=== PATIENT | female | born 1960 | race Caucasian/White ===

== ENCOUNTER 2017-04-05 08:32 | Outpatient (CLI) | payer MEDICAID ==
[~2017-04-05] VITALS: Ht 157.5 cm; Wt 75.5 kg
--- NOTE | ~2017-04-05 | OP ---
PATIENT NAME: TRINIDAD ZAMORA MEDICAL RECORD: [id number] :58 LOCATION:D.CAT ADMISSION DATE: SURGEON: SHARLENE ALLEN MD DATE OF OPERATION: 04/05/2017 PROCEDURES: 1. PTCA stent RCA. 2. Left heart catheterization. 3. Selective angiography. 4. Left ventriculogram. INDICATION: Angina and coronary artery disease. PROCEDURE IN DETAIL: After informed consent was obtained and after detailed explanation of risks, benefits as well as alternative therapies, the patient elected to proceed with angiogram and angioplasty. The left femoral area was prepped and draped in normal sterile fashion. The right femoral artery was cannulated via modified Seldinger technique with placement of 6-Welsh sheath. All catheters exchanged through this sheath. FINDINGS: Left ventriculogram was performed in the standard 30-degree RIVAS view, reveals good cardiac wall motion throughout all segments. Overall ejection fraction estimated 60%. SELECTIVE CORONARY ANGIOGRAPHY: 1. Left main showed no significant angiographic disease. 2. Left anterior descending has nnxw-qr-abhpechs irregularities, but no flow-limiting stenosis. 3. The left circumflex has previously placed stent that is widely patent with no restenosis. No disease elsewise throughout the left circumflex or its branches. 4. The right coronary has previously placed stent in the proximal aspect. This is widely patent; however, the distal right coronary has long area of 70% to 80% stenosis. PTCA STENT OF THE RIGHT CORONARY: The stent used 2.25 x 30 mm [place]. Result was 0% residual stenosis. OVERALL IMPRESSION: Successful percutaneous transluminal coronary angioplasty stent of the right coronary artery going from 80% initial stenosis to 0% residual. TRANSINT:[id number] Voice Confirmation ID: [id number] DOCUMENT ID: [id number] SHARLENE ALLEN MD CC: [id number] DICTATION DATE: 04/05/17 1226 JUKE BOX SERVICER: 04/05/17 210 [facility] CLI 04/05/17 [place] [address]
--- NOTE | ~2017-04-05 | HEMODYNAMI ---
PATIENT:TRINIDAD ZAMORA MEDICAL RECORD: [id number] : 58 LOCATION:DVIPIN ADMISSION DATE: 04/05/17 Generatedon:04/05/201712:30 Patient name: TRINIDAD ZAMORA Patient #: [id number] : 1960 Date of study: 04/05/2017 Page: Of Hemodynamic Procedure Report Patient Data Patient Demographics Procedure consent was obtained First Name: TRINIDAD Gender: Female Last Name: SERA : 1960 [facility] Initial: Vu Age: 56 year(s) Patient #: [id number] Race: SSN: [id number] Additional ID: [id number] Contact details Address: [address] [place] [address] State: [place] City: [place] Zip code: [address] Past Medical History History of disease Date Diagnosis Comments CAD Allergies Allergen Reaction Date Comments Reported Other allergy 06/01/2016 Biaxin, Keflex, Sulfa Sulfa drugs 06/03/2016 Other allergy 06/03/2016 biaxin, keflex Admission Admission Data Admission Date: 04/05/2017 Admission Time: 8:32 Height (in.): 62 BSA: 1.77 (m2) Height (cm.): 157.48 BMI: 30.36 (kg/m2) Weight (lbs.): 166 Weight (kg.): 75.3 Procedure Procedure Types Cath Procedure Diagnostic Procedure [facility] w/Coronaries PCI Procedure Coronary Stent Initial Miscellaneous Procedures Moderate Sedation up to 30 minutes Peripheral Cath Diagnostic Procedure Cath Peripheral Lmojq-Ypizcct-Lij-Off Procedure Description Procedure Date Procedure Date: 04/05/2017 Procedure Start Time: 12:05 Procedure End Time: 12:29 Procedure Staff Name Function Juan Manuel Barlow MD Performing Physician Liliana Mercedes RT Scrub Fabiana Avendano RN Nurse Pelon Morris RT Monitor Procedure Data Cath Procedure Fluoroscopy Diagnostic fluoroscopy Total fluoroscopy Time: 4 time: 4 min min Diagnostic fluoroscopy Total fluoroscopy dose: 490 dose: 490 mGy mGy Contrast Material Contrast Material Type Amount (ml) Isovue 300 140 Entry Location Entry Primary Successful Side Size Upsize Upsize Entry Closure Succes sful Closure Location (Fr) 1 (Fr) 2 (Fr) Remarks Device Remarks Femoral Left 5 Fr 6 Fr Exoseal artery Short Estimated blood loss: 10 ml Diagnostic catheters Device Type Used For End Catheter Placement Cordis 5Fr Pigtail Procedure Catheter (MP) Cordis 5Fr JL 4.0 Procedure Catheter (MP) Cordis 5Fr 3DRC Catheter Procedure (MP) Procedure Complications No complications Procedure Medications Medication Administration Route Dosage Oxygen NC 2 l/min Heparin Flush Bag added to field 2 bags (1000units/500ml NS) Lidocaine 2% added to field 20 Heparin Bolus I.V. 4000 units Integrilin (Bolus I.V. 6.8 ml 2mg/ml) Plavix P.O. 600 mg Versed I.V. 1 mg Fentanyl I.V. 50 mcg Versed I.V. 1 mg Fentanyl I.V. 50 mcg Versed I.V. 1 mg Fentanyl I.V. 50 mcg Fentanyl I.V. 50 mcg Versed I.V. 1 mg Fentanyl I.V. 50 mcg Versed I.V. 1 mg Versed I.V. 1 mg Fentanyl I.V. 50 mcg Fentanyl I.V. 50 mcg Fentanyl I.V. 50 mcg Hemodynamics Rest BSA: 1.77 (m2) O2 Consumption: Estimated: 169.56 (ml/min) O2 Consumption indexed : Estimated:95.8 (ml/min/m) Heart Rate: 70 (bpm) Pressure Samples Time Site Value (mmHg) Purpose Heart Use Rate(bpm) 12:07 AO 118/63(86) Snapshot 68 Snapshots Pre Cath Intra NCS Post Cath Vital Signs Time Heart Resp SPO2 NIBP (mmHg) Rhythm Pain Sedation Rate (ipm) (%) Status Level (bpm) 11:52:39 78 18 98 150/102(133) NSR 0 (11) 10(A) , No pain 11:57:01 69 20 98 153/79(123) NSR 0 (11) 10(A) , No pain 12:01:15 66 15 100 120/73(106) NSR 0 (11) 10(A) , No pain 12:05:29 64 15 100 119/55(94) NSR 0 (11) 10(A) , No pain 12:09:41 71 26 100 107/55(97) NSR 0 (11) 10(A) , No pain 12:13:51 83 19 100 109/58(80) NSR 0 (11) 10(A) , No pain 12:18:03 79 16 100 107/60(93) NSR 0 (11) 10(A) , No pain 12:21:26 85 16 99 118/70(85) NSR 0 (11) 10(A) , No pain 12:25:35 78 16 100 131/70(93) NSR 0 (11) 10(A) , No pain 12:29:45 77 6 133/76(98) NSR 0 (11) 10(A) , No pain Medications Time Medication Route Dose Verified Delivered Reason Notes Effectiveness by by 11:51:38 Oxygen NC 2 Juan Manuel Fabiana Per physician l/min Cain Avendano RN 11:51:48 Heparin Flush added 2 Juan Manuel Juan Manuel used for Bag to bags Cain Barlow MD procedure (1000units/500ml field NS) 11:51:58 Lidocaine 2% added 20ml Juan Manuel Juan Manuel used for to vial Cain Barlow MD procedure field 12:02:46 Versed I.V. 1 mg Juan Manuel Fabiana for sedation Cain Avendano RN 12:02:50 Fentanyl I.V. 50 Juan Manuel Fabiana for sedation mcg Cain Avendano RN 12:04:39 Versed I.V. 1 mg Juan Manuel Fabiana for sedation Cain Avendano RN 12:04:47 Fentanyl I.V. 50 Juan Manuel Fabiana for sedation mcg Cain Avendano RN 12:06:42 Versed I.V. 1 mg Juan Manuel Fabiana for sedation Cain Avendano RN 12:06:44 Fentanyl I.V. 50 Juan Manuel Fabiana for sedation mcg Cain Avendano RN 12:08:43 Fentanyl I.V. 50 Juan Manuel Fabiana for sedation mcg Cain Avendano RN 12:08:50 Versed I.V. 1 mg Juan Manuel Fabiana for sedation Cain Avendano RN 12:10:46 Fentanyl I.V. 50 Juan Manuel Fabiana for sedation mcg Cain Avendano RN 12:10:56 Versed I.V. 1 mg Juan Manuel Fabiana for sedation Cain Avendano RN 12:12:49 Versed I.V. 1 mg Juan Manuel Fabiana for sedation Cain Avendano RN 12:12:55 Fentanyl I.V. 50 Juan Manuel Fabiana for sedation mcg Cain Avendano RN 12:15:10 Fentanyl I.V. 50 Juan Manuel [place] for sedation mcg Cain Avendano RN 12:15:16 Heparin Bolus I.V. 4000 Juan Manuel [place] for dose units Cain Avendnao RN anticoagulation verified with dr barlow 12:17:06 Integrilin I.V. 6.8 Juan Manuel Fabiana for wasted (Bolus 2mg/ml) ml Cain Avendano RN antiplatelet 3.2 ml therapy 12:18:17 Fentanyl I.V. 50 Juan Manuel [place] for sedation pt mcg Cain Avendano RN reports left groin pain 12:24:13 Plavix P.O. 600 Juan Manuel [place] for mg Cain Avendano RN antiplatelet therapy Procedure Log Time Note 11:35:28 Patient Height : 157.48 cm 11:35:34 Patient Weight : 75.3 kg 11:36:07 Diagnostic Cath status Elective 11:36:09 Pelon GUTIERREZ(R) sent for patient. Start room use. 11:36:12 Time tracking: Regular hours 11:36:17 Plan of Care:Hemodynamics will remain stable., Cardiac rhythm will remain stable., Comfort level will be maintained., Respiratory function will remain adequate., Patient/ family verbilizes understanding of procedure., Procedure tolerated without complication., Recovers from procedure without complications.. 11:46:58 Patient received from Pre/Post Procedure Room to CCL 2 Alert and oriented. Tansferred to table in Supine position. 11:47:00 Warm blankets applied, and bria hugger turned on for patient comfort. 11:47:00 Correct patient and procedure confirmed by team. 11:47:01 Signed procedure consent form obtained from patient. 11:47:02 ECG and BP/O2 sat monitors applied to patient. 11:51:30 Vital chart was started 11:51:38 Oxygen 2 l/min NC was administered by Fabiana Avendano RN; Per physician; 11:51:48 Heparin Flush Bag (1000units/500ml NS) 2 bags added to field was administered by Juan Manuel Barlow MD; used for procedure; 11:51:58 Lidocaine 2% 20ml vial added to field was administered by Juan Manuel Barlow MD; used for procedure; 11:54:03 Baseline sample Acquired. 11:58:32 Rhythm: sinus rhythm 12:01:09 Full Disclosure recording started 12:01:11 Baseline sample Acquired. 12:01:18 H&P Date Dictated: 04/05/2017 Within 30 days and on chart., H&P Addendum completed by physician on day of procedure. (MUST COMPLETE FOR ALL OUTPATIENTS). 12:01:18 Pre-procedure instructions explained to patient. 12:01:19 Pre-op teaching completed and patient verbalized understanding. 12:01:22 Family in waiting room. 12:01:23 Patient NPO since Midnight. 12:01:25 Is the patient allergic to Iodine/contrast media? No. 12:01:49 Is patient on blood thinner?No 12:01:51 Patient diabetic? No. 12:01:54 Patient not . Patient is over age 55. 12:01:57 Previous problem with sedation/anesthesia? No ? 12:01:58 Snore? Yes 12:01:59 Sleep apnea? No 12:02:00 Deviated septum? No 12:02:01 Opens mouth fully? Yes 12:02:02 Sticks out tongue? Yes 12:02:03 Airway obstruction? No ? 12:02:05 Dentures? No ? 12:02:08 Pre procedure: left dorsailis pedis pulse 1+ Palpable, but thready & weak; easily obliterated 12:02:11 Patient pain scale 0/10 ?. 12:02:16 Lab results completed and on chart. 12:02:19 Left groin area was prepped with chlora-prep and draped in sterile fashion 12:02:19 Alarms reviewed by R. N. 12:02:20 Sharps counted by scrub and verified by R.N. 12:02:21 --------ALL STOP TIME OUT------ 12:02:22 Final Timeout: patient, procedure, and site verified with staff and physician. All members of the team are in agreement. 12:02:24 Left groin site verified by team. 12:02:28 Physical assessment completed. ASA score P 2 - A patient with mild systemic disease as per Juan Manuel Barlow MD. 12:02:31 Sedation plan: IV Moderate Sedation Versed, Fentanyl 12:02:46 Versed 1 mg I.V. was administered by Fabiana Avendano RN; for sedation; 12:02:50 Fentanyl 50 mcg I.V. was administered by Fabiana Avendano RN; for sedation; 12:04:30 Use device set Femoral Dx 12:04:32 Tegaderm 4 x 4 opened to sterile field. 12:04:34 Acist Hand Control opened to sterile field. 12:04:34 Acist Manifold opened to sterile field. 12:04:35 Acist Syringe opened to sterile field. 12:04:36 Bag Decanter opened to sterile field. 12:04:36 Medline Cath Pack opened to sterile field. 12:04:36 Terumo 5Fr Ferdinand Sheath opened to sterile field. 12:04:37 St Joshua 260cm J .035 wire opened to sterile field. 12:04:38 Diagnostic Infinity 5Fr Multipack catheter opened to sterile field. 12:04:39 Versed 1 mg I.V. was administered by Fabiana Avendano RN; for sedation; 12:04:47 Fentanyl 50 mcg I.V. was administered by Fabiana Avendano RN; for sedation; 12:05:01 Procedure type changed to Cath procedure, Diagnostic procedure, LHC, LHC w/Coronaries, PCI procedure, Coronary Stent Initial, Miscellaneous Procedures, Moderate Sedation up to 30 minutes, Peripheral Cath Diagnostic Procedure, Cath Peripheral, Cdjdq-Zopypas-Ipf-Off 12:05:06 Procedure started. 12:05:09 Local anesthetic to left femerol artery with Lidocaine 2% by Juan Manuel Barlow MD.INITIAL ACCESS ONLY 12:06:28 A 5 Fr sheath was inserted into the Left Femoral artery 12:06:42 Versed 1 mg I.V. was administered by Fabiana Avendano RN; for sedation; 12:06:44 Fentanyl 50 mcg I.V. was administered by Fabiana Avendano RN; for sedation; 12:06:55 A Cordis 5Fr Pigtail Catheter (MP) was advanced over the wire and used for Procedure. 12:07:15 LV angiography performed. 12:07:16 LV gram done using RIVAS 12:07:22 EF : 60 % 12:07:26 Injector settings: Ml/sec: 7, Volume: 15, 12:07:33 Abdominal Aortagram was performed. 12:08:30 Right leg runoff performed. 12:08:31 Left leg runoff performed. 12:08:43 Fentanyl 50 mcg I.V. was administered by Fabiana Avendano RN; for sedation; 12:08:50 Versed 1 mg I.V. was administered by Fabiana Avendano RN; for sedation; 12:09:18 Catheter removed. 12:09:23 A Cordis 5Fr JL 4.0 Catheter () was advanced over the wire and used for Procedure. 12:09:54 LCA angiography performed. 12:10:19 Catheter exchanged over wire. 12:10:46 Fentanyl 50 mcg I.V. was administered by Fabiana Avendano RN; for sedation; 12:10:56 Versed 1 mg I.V. was administered by Fabiana Avendano RN; for sedation; 12:11:13 A Cordis 5Fr 3DRC Catheter () was advanced over the wire and used for Procedure. 12:11:32 RCA angiography performed. 12:12:23 Catheter exchanged over wire. 12:12:49 Versed 1 mg I.V. was administered by Fabiana Avendano RN; for sedation; 12:12:55 Fentanyl 50 mcg I.V. was administered by Fabiana Avendano RN; for sedation; 12:14:30 Terumo 6Fr Ferdinand Sheath opened to sterile field. 12:14:30 Medtronic Launcher 6Fr AR 1.0 SH guide catheter opened to sterile field. 12:14:30 LEAPIN Digital Keys BasixCompak Inflation Kit opened to sterile field. 12:14:31 Leroy Whisper J 300cm 0.014 guide wire opened to sterile field. 12:14:55 Sheath upsized to a 6 Fr Short. 12:15:10 Fentanyl 50 mcg I.V. was administered by Fabiana Avendano RN; for sedation; 12:15:16 Heparin Bolus 4000 units I.V. was administered by Fabiana Avendano RN; for anticoagulation; dose verified with dr barlow 12:15:25 6 Fr AR 1 SH guide catheter was inserted over the wire 12:16:30 Whisper wire advanced. 12:16:47 Wire advanced across lesion. 12:17:06 Integrilin (Bolus 2mg/ml) 6.8 ml I.V. was administered by Fabiana Avendano RN; for antiplatelet therapy; wasted 3.2 ml 12:17:23 Inflation Number: 1 A Azael OTW 2.25 x 30 stent was prepped and advanced across the Dist RCA. The stent was deployed at 13 MAYELA for 0:10 (min:sec). 12:18:17 Fentanyl 50 mcg I.V. was administered by Fabiana Avendano RN; for sedation; pt reports left groin pain 12:18:38 Stent catheter was removed intact over wire. 12:18:39 Wire removed. 12:18:39 Guide catheter removed. 12:18:46 Cordis 6Fr Exoseal opened to sterile field. 12:18:54 Sheath removed intact; hemostasis achieved with Exoseal to the Left Femoral artery. 12:19:18 Procedure ended.(Physican Out) 12:19:22 Fluoroscopy time 04.00 minutes. 12:19:25 Fluoroscopy dose: 490 mGy 12:19: Flurop Dose total: 490 12:19:29 Contrast amount:Isovue 300 140ml. 12:19:33 Sharps counted by scrub and verified by R.N. 12:19:34 Insertion/operative site no bleeding no hematoma. 12:19:38 Post-op/insertion site Left Femoral artery dressed using a 4 x 4 and Tegaderm. 12:19:39 Post Procedure Pulses reassessed and unchanged 12:19:42 Post-procedure physical assessment completed. ASA score P 2 - A patient with mild systemic disease as per Juan Manuel Barlow MD. 12:19:45 Post procedure rhythm: unchanged. 12:19:47 Estimated blood loss: 10 ml 12:19:48 Post procedure instruction explained to patient.Patient verbalizes understanding. 12:19:49 Patient needs reinforcement of post procedure teaching. 12:19:57 Procedure Complication : No complications 12:20:52 Procedure and supply charges have been captured, reviewed, submitted and are correct. 12:24:13 Plavix 600 mg P.O. was administered by Fabiana Avendano RN; for antiplatelet therapy; 12:29:34 Vital chart was stopped 12:29:35 See physician's report for complete and final results. 12:29:50 Report given to Pre/Post Procedure Room. 12::53 Patient transfered to Pre/Post Procedure Room with Stretcher. 12:29:55 Procedure ended. 12:29:55 Full Disclosure recording stopped 12:30:11 End room use (Document Last) Intervention Summary Intervention Notes Time ActionType Lesion and Equipment Action# Pressure Duration Attributes Used 12:17:23 Place stent Dist RCA Azael OTW 1 13 00:10 2.25 x 30 stent Device Usage Item Name Manufacture Quantity Catalog Hospital Part Current Minimal Lot# / Number Charge Number Stock Stock Serial# Code Tegaderm 4 1 [id number] [id number] [id number] 5 x 4 Acist Hand Acist 1 85541 363461 191172 845694 5 Control Medical Systems Inc Acist Acist 1 36989 369345 548277 609653 5 Manifold Medical Systems Inc Acist Acist 1 56626 798826 885828 364901 20 Syringe Medical Systems Inc Bag Microtek 1 2002S 845864 76940 562999 5 ChargePoint Technology Inc. Medline Cardinal 1 [id number] 391442 11875 603489 5 Cath Pack Health Terumo 5Fr Terumo 1 [id number] 353857 955297 180930 [address] Joshua 1 947278 134507 910404 216499 30 260cm J .035 wire Diagnostic Cardinal 1 [id number] 574637 20076 509120 30 Infinity Health 5Fr Multipack catheter Cordis 5Fr Cardinal 1 857693 5 Pigtail Health Catheter (MP) Cordis 5Fr Cardinal 1 850056 5 JL 4.0 Health Catheter (MP) Cordis 5Fr Cardinal 1 534673 5 3DRC Health Catheter (MP) Terumo 6Fr Terumo 1 [id number] 437542 462102 979974 40 Ferdinand Sheath Medtronic Medtronic 1 [id number] 578035 01613 891284 1 Launcher 6Fr AR 1.0 SH guide catheter Merit Merit 1 [id number] 590907 587377 376598 15 [employer] [place] Medical Inflation Kit Leroy Leroy 1 [id number] 088401 503518 278033 5 Whisper J Vascular 300cm 0.014 guide wire [place] OTW Medtronic 1 [id number] 054817 27028 122565 5 [id number] 2.25 x 30 stent Cordis 6Fr Cardinal 1 [id number] 269928 971814 032529 10 [facility] Health Signature Audit [place] Stage Time Signature Unsigned Intra-Procedure 04/05/2017 Pelon Morris 12:30:35 PM RT(R) Signatures Monitor : Pelon Morris RT Signature : Date : Time : [address] [address]
--- NOTE | ~2017-04-05 | OP ---
PATIENT NAME: TRINIDAD ZAMORA MEDICAL RECORD: [id number] :58 LOCATION:D.CAT ADMISSION DATE: SURGEON: SHARLENE ALLEN MD DATE OF OPERATION: 04/05/2017 PROCEDURES: 1. Aortofemoral runoff. 2. Abdominal aortography. INDICATIONS: Claudication and peripheral vascular disease. PROCEDURE IN DETAIL: After informed consent was obtained and after detailed explanation of risks, benefits as well as alternative therapies, the patient elected to proceed with angiogram and aortofemoral runoff. The left femoral area had a preexisting sheath from cardiac intervention. All catheters exchanged through this sheath. FINDINGS: The abdominal aortography was performed. The catheter was pulled down for aortofemoral runoff. Abdominal aortography reveals no significant abdominal aortic disease. No dissection or aneurysm formation. RIGHT LEG: A. Iliac: The common and external iliacs have previously placed stents, these are widely patent with no significant restenosis. B. Femoral system: The common superficial and deep femoral have mild irregularities, but no flow-limiting stenosis. C. Popliteal and infrapopliteal vessels are widely patent with good 3-vessel runoff to the foot. LEFT LEG: A. Iliac: The common iliac has previously placed stent that is widely patent with no significant restenosis. There is no other disease throughout the iliacs. B. Femoral system: The common superficial and deep femoral have moderate irregularities, but no flow-limiting stenosis. C. Popliteal and infrapopliteal vessels are widely patent with good 3-vessel runoff to the foot. OVERALL IMPRESSION: Wide patency of the previously placed stent in the iliacs bilaterally. No disease elsewise. Continue medical management of the peripheral vascular disease and peripheral vascular risk factors. TRANSINT:[id number] Voice Confirmation ID: [id number] DOCUMENT ID: [id number] SHARLENE ALLEN MD CC: [id number] DICTATION DATE: 04/05/17 1226 QUALITY CONTROL INSPECTOR: 04/06/17 0052 DEP CLI 04/05/17 [place] [id number] [place] [id number]
[~2017-04-05 08:32] MED LIST: EDARBI40 MG PO; HYDROCODONE-APA1 TAB PO; LEXAPRO20 MG PO; PHENERGAN25 M1 PO; PLAVIX75 MG PO; TENORMIN50 MG PO; XANAX1 MG PO; ZANAFLEX2 M1 PO; ZETIA10 MG PO
[2017-04-05] MEDS ORDERED: LEVOXYL25 MCG PO (09:45)
[2017-04-05] MEDS ORDERED: KLONOPIN1 MG PO (09:45)
[2017-04-05] MEDS ORDERED: NORVASC10 MG PO (09:46)
[2017-04-05] MEDS ORDERED: ZANAFLEX4 MG PO (09:46)
[2017-04-05 09:54] LABS: BASOPHILS 0.5 % (0-2); EOSINOPHILS 5.8 % (0-7); HEMATOCRIT 35.9 % (36.0-48.0); HEMOGLOBIN 12.7 g/dL (12-16); IMMATURE GRANULOCYTES 0.3 % (0-5); LYMPHOCYTES 35.6 % (15-50); MCH 31.8 pg (26.0-34.0); MCHC 35.4 g/dL (31.0-37.0); MEAN PLATELET VOLUME 9.3 fL (7.4-10.4); MONOCYTES 7.4 % (2-11); NEUTROPHILS 50.4 % (40-80); RBC 3.99 10x6/uL (4.00-5.40); RDW 12.1 % (11.5-14.5); WBC 6.2 10x3/uL (4.8-10.8)
[2017-04-05 09:55] VITALS: BP 163/87; Ht 157.5 cm; Wt 75.5 kg
[2017-04-05 10:04] LABS: ANION GAP 10.7 mmol/L (8-16); CALCIUM 8.8 mg/dL (8.5-10.1); CARBON DIOXIDE 32.2 mmol/L (21.0-32.0); CREATININE - SERUM 1.1 mg/dL (0.6-1.3); POTASSIUM - SERUM 3.9 mmol/L (3.5-5.1)
[2017-04-05 10:12] LABS: PLATELET COUNT 123 10x3/uL (130-400)
--- NOTE | 2017-04-05 13:00 | NUR ---
LEFT GROIN WITH SMALL AMOUNT OF BLOOD ON DRESSING-NO HEMATOMA NOTED, REMINDED PT TO KEEP LEFT LEG STRAIGHT. WIGGLING IN BED. C/O PAIN
--- NOTE | 2017-04-05 13:15 | NUR ---
NORCO 10/325 X1 GIVEN PO FOR PAIN. LEFT GROIN WITH DRESSING SATURATED. PAZ WEBER HERE- FEMSTOP APPLIED. PT CONTINUES TO WIGGLE.
--- NOTE | 2017-04-05 13:40 | NUR ---
PAIN SOME BETTER, LYING QUIETLY, LEFT LEG STRAIGHT WITH FEMSTOP IN PLACE. FAMILY AT SIDE
--- NOTE | 2017-04-05 14:30 | NUR ---
FEMSTOP OFF, DRESSING CDI - NO HEMATOMA OR BLEEDING NOTED AT SITE. BEDPAN USED- BM
--- NOTE | 2017-04-05 16:15 | NUR ---
IV D'C WITH CATH TIP INTACT, LEFT GROIN CDI, NO HEMATOMA OR BLEEDING AT SITE.
--- NOTE | 2017-04-05 16:30 | NUR ---
WRITTEN AND VERBAL INSTRUCTIONS GIVEN TO PT AND FAMILY-VERBAL UNDERSTANDING NOTED. INSTRUCTED PT OF NEED TO USE RESTROOM- SHE THEN TELLS ME "I PEED IN THE TRASH CAN". URINE NOTED IN TRASH CAN. D'C HOME WITH FAMILY.
== END 2017-04-05 16:30 | disposition home or self-care (01) ==
LOC: D.CATH 08:32
PROVIDERS: Internal Medicine Interventional Cardiology
DX: I25.119 Atherosclerotic heart disease of native coronary artery with unspecified angina pectoris (principal); Z95.5 Presence of coronary angioplasty implant and graft; I70.219 Atherosclerosis of native arteries of extremities with intermittent claudication, unspecified extremity; Z95.820 Peripheral vascular angioplasty status with implants and grafts; Z01.812 Encounter for preprocedural laboratory examination

== ENCOUNTER → 2017-12-18 16:21 | Outpatient (CLI) | payer MEDICAID ==
[2017-04-05 09:55] VITALS: BMI 30.4
[~2017-12-18 16:21] MED LIST changes: +BAYER CHEWABLE81 MG PO; +BUTALB-APAP-CA1 EACH PO; +CALMOSEPTINE OI71 GM TOPICAL; +DILAUDID2 MG PO; +Duragesic TRANSDERM; +ESTROPIPATE1.5 MG PO; +KLONOPIN1 MG PO; +LEVOXYL25 MCG PO; +MEDROL DOSE PACK4 MG PO; +NEURONTIN 300300 MG PO; +NIFEDIPINE ER60 MG PO; +NORVASC10 MG PO; +PROCARDIA10 MG PO; +ULTRAM50 MG PO; +ZANAFLEX4 MG PO
== END | disposition home or self-care (01) ==
LOC: D.CT 16:21
DX: R22.1 Localized swelling, mass and lump, neck (principal)

== ENCOUNTER 2017-12-18 23:19 | Inpatient (IN) | payer MEDICAID ==
[~2017-12-18] VITALS: Ht 157.5 cm; Wt 78.5 kg
--- NOTE | ~2017-12-18 | EC ---
PATIENT:TRINIDAD ZAMORA DATE OF SERVICE: 12/19/17 SEX: F MEDICAL RECORD: [id number] DATE OF : 58 LOCATION:D.MS [facility] AGE OF PATIENT: 57 ADMISSION DATE: 12/19/17 REFERRING PHYSICIAN: INTERPRETING PHYSICIAN: SHARLENE BARLOW MD ECHOCARDIOGRAM REPORT ECHO CHARGES 4 ECHO COMPLETE Date: 12/19 CLINICAL DIAGNOSIS: ASSESS FOR EFFUSION,LVFUN ECHOCARDIOGRAPHIC MEASUREMENTS (adult normal given) AC root (d.<3.7cm) 3.1 cm LV Septum d (<1.2 cm> 1.2 cm Valve Excursion cm LV Septum (systole) 1.4 cm Left Atria (s.<4.0cm> 4.1 cm LVPW d(<1.2cm) 1.2 cm RV (d.<2.3cm) 3.7 cm LVPW (sytole) 1.5 cm LV diastole(<5.6CM) 4.0 cm MV E-F(>70mm/sec) cm LV systole 2.8 cm LVOT Diameter 1.8 cm MV exc.(>10mm) 1.7 cm Est.ejection fraction (50-75%) % DOPPLER: LVIT cm/sec A 73.0 cm/sec E 85.0 cm/sec LA cm/sec RVSP 16 mmHg LVOT 106 cm/sec AOP1/2T m/s Asc. Ao 118 cm/sec RVOT cm/sec RA cm/sec PA cm/sec AV Gradient Peak 5.57 mmHg AV Mean 2.72 mmHg AV Area 2.1 cm MV Gradient Peak 5.44 mmHg MV Mean 1.61 mmHg MV Area cm COMMENTS: Bicycle Repair Technician: hSarath IRAHETA Milling Supervisor: 1 Dr. Barlow TAPE# pacs Pericardial Effusion N DATE OF SERVICE: PROCEDURE: Echocardiogram. FINDINGS: 1. Left ventricular chamber size is within normal limits. Left ventricular systolic function is normal. Overall ejection fraction estimated at 55% to 60%. 2. The left atrium is mildly dilated at 4.1 cm. Right atrium and right ventricle chamber sizes are within normal limits. 3. Valvular structures have normal structure and motion. ECHOCARDIOGRAM REPORT [id number] TRINIDAD ZAMORA 4. Doppler interrogation reveals trace mitral regurgitation, no other valvular insufficiency or stenosis and pulmonary systolic pressure is estimated 60 mmHg. 5. No evidence of pericardial effusion or left ventricular thrombus. TRANSINT:[id number] Voice Confirmation ID: [id number] DOCUMENT ID: [id number] SHARLENE BARLOW MD at 1351 CC: [id number] DICTATION DATE: 12/20/17 1125 MAINTENANCE TEAM MEMBER: 12/20/17 1351 ADM IN [facility] [address] [place] [id number]
[~2017-12-18 23:19] MED LIST changes: -BAYER CHEWABLE81 MG PO; -BUTALB-APAP-CA1 EACH PO; -CALMOSEPTINE OI71 GM TOPICAL; -DILAUDID2 MG PO; -Duragesic TRANSDERM; -ESTROPIPATE1.5 MG PO; -MEDROL DOSE PACK4 MG PO; -NEURONTIN 300300 MG PO; -NIFEDIPINE ER60 MG PO; -PROCARDIA10 MG PO; -ULTRAM50 MG PO
[2017-12-19 00:25] LABS: BASOPHILS 0.3 % (0-2); EOSINOPHILS 0.5 % (0-7); HEMATOCRIT 39.2 % (36.0-48.0); HEMOGLOBIN 12.9 g/dL (12-16); IMMATURE GRANULOCYTES 0.8 % (0-5); LYMPHOCYTES 15.8 % (15-50); MCH 30.3 pg (26.0-34.0); MCHC 32.9 g/dL (31.0-37.0); MEAN PLATELET VOLUME 9.3 fL (7.4-10.4); NEUTROPHILS 76.6 % (40-80); RBC 4.26 10x6/uL (4.00-5.40); RDW 12.9 % (11.5-14.5); WBC 11.2 10x3/uL (4.8-10.8)
[2017-12-19 00:27] LABS: PLATELET COUNT 165 10x3/uL (130-400)
[2017-12-19 00:31] LABS: INR 1.02 (0.85-1.17)
[2017-12-19 00:34] LABS: APTT 21.1 SECONDS (22.8-39.4)
[2017-12-19 00:35] LABS: ALBUMIN 4.2 g/dL (3.4-5.0); ANION GAP 12.6 mmol/L (8-16); BILIRUBIN - TOTAL 0.1 mg/dL (0.2-1.3); CALCIUM 9.2 mg/dL (8.5-10.1); CARBON DIOXIDE 29.5 mmol/L (21.0-32.0); CREATININE - SERUM 1.3 mg/dL (0.6-1.3); D-DIMER-QUANTITATIVE 0.32 ug/mLFEU (0.20-0.54); POTASSIUM - SERUM 4.1 mmol/L (3.5-5.1); PROTEIN - SERUM 8.2 g/dL (6.4-8.2)
[2017-12-19] MEDS ORDERED: PROCARDIA10 MG PO (14:23)
[2017-12-19] MEDS ORDERED: NEURONTIN 300300 MG PO (14:25)
[2017-12-19] MEDS ORDERED: ULTRAM50 MG PO (14:26)
[2017-12-19] MEDS ORDERED: BUTALB-APAP-CA1 EACH PO (14:27)
[2017-12-19] MEDS ORDERED: ESTROPIPATE1.5 MG PO (14:34)
[2017-12-19] MEDS ORDERED: MEDROL DOSE PACK4 MG PO (14:39)
[2017-12-19] MEDS ORDERED: NIFEDIPINE ER60 MG PO ×2 (14:40→14:44)
[2017-12-19] MEDS ORDERED: BAYER CHEWABLE81 MG PO (14:40)
[2017-12-19] MEDS ORDERED: ZETIA10 MG PO (14:42)
[2017-12-20 00:16] VITALS: BP 105/54
[2017-12-20] MEDS ORDERED: PHENERGAN25 M1 PO (02:23)
[2017-12-20 05:05] VITALS: BP 150/91
[2017-12-20 05:17] VITALS: BMI 31.7
[2017-12-20 06:20] LABS: BASOPHILS 0.2 % (0-2); EOSINOPHILS 0.6 % (0-7); HEMATOCRIT 37.7 % (36.0-48.0); HEMOGLOBIN 12.2 g/dL (12-16); IMMATURE GRANULOCYTES 1.1 % (0-5); LYMPHOCYTES 19.1 % (15-50); MCH 30.3 pg (26.0-34.0); MCHC 32.4 g/dL (31.0-37.0); MCV 93.5 fL (80.0-100.0); MEAN PLATELET VOLUME 9.6 fL (7.4-10.4); MONOCYTES 8.6 % (2-11); NEUTROPHILS 70.4 % (40-80); PLATELET COUNT 174 10x3/uL (130-400); RBC 4.03 10x6/uL (4.00-5.40); RDW 13.1 % (11.5-14.5); WBC 13.3 10x3/uL (4.8-10.8)
[2017-12-20 06:59] LABS: ANION GAP 12.9 mmol/L (8-16); BILIRUBIN - TOTAL 0.2 mg/dL (0.2-1.3); CALCIUM 9.2 mg/dL (8.5-10.1); CARBON DIOXIDE 28.2 mmol/L (21.0-32.0); CREATININE - SERUM 1.2 mg/dL (0.6-1.3); POTASSIUM - SERUM 4.1 mmol/L (3.5-5.1); PROTEIN - SERUM 7.7 g/dL (6.4-8.2)
[2017-12-20 08:15] VITALS: BP 126/79
[2017-12-20 10:43] VITALS: BMI 31.6
[2017-12-20 12:26] VITALS: BP 125/72
[2017-12-20 16:25] VITALS: BP 110/65
[2017-12-20 18:07] VITALS: Ht 157.5 cm; Wt 78.5 kg
[2017-12-20 21:54] VITALS: BP 119/51
[2017-12-21 01:01] VITALS: BP 124/54
[2017-12-21 04:47] VITALS: BP 124/64
[2017-12-21 06:53] LABS: INR 1.06 (0.85-1.17); PROTIME 13.4 SECONDS (11.6-15.0)
[2017-12-21 07:03] LABS: APTT 53.6 SECONDS (22.8-39.4)
[2017-12-21 07:46] LABS: ANION GAP 16.5 mmol/L (8-16); CALCIUM 8.5 mg/dL (8.5-10.1); CREATININE - SERUM 1.3 mg/dL (0.6-1.3); POTASSIUM - SERUM 4.5 mmol/L (3.5-5.1)
[2017-12-21 07:52] LABS: BASOPHILS 0.3 % (0-2); EOSINOPHILS 1.5 % (0-7); HEMATOCRIT 34.1 % (36.0-48.0); HEMOGLOBIN 11.1 g/dL (12-16); IMMATURE GRANULOCYTES 1.1 % (0-5); LYMPHOCYTES 24.3 % (15-50); MCH 30.4 pg (26.0-34.0); MCHC 32.6 g/dL (31.0-37.0); MCV 93.4 fL (80.0-100.0); MEAN PLATELET VOLUME 9.8 fL (7.4-10.4); MONOCYTES 9.1 % (2-11); NEUTROPHILS 63.7 % (40-80); PLATELET COUNT 113 10x3/uL (130-400); RBC 3.65 10x6/uL (4.00-5.40); RDW 13.3 % (11.5-14.5); WBC 9.6 10x3/uL (4.8-10.8)
[2017-12-21 08:34] VITALS: BP 119/69
[2017-12-21 16:14] VITALS: BP 116/76
[2017-12-21 21:03] VITALS: BP 184/90
[2017-12-22 00:58] VITALS: BP 116/61
[2017-12-22 04:55] VITALS: BP 124/64
[2017-12-22 08:02] VITALS: BP 118/65
[2017-12-22 13:00] VITALS: BP 155/63
[2017-12-22 19:48] VITALS: BP 103/61
[2017-12-22 23:54] VITALS: BP 117/70
[2017-12-23 04:29] VITALS: BP 129/59
[2017-12-23 05:56] LABS: BASOPHILS 0.1 % (0-2); EOSINOPHILS 0.2 % (0-7); HEMATOCRIT 30.6 % (36.0-48.0); HEMOGLOBIN 9.9 g/dL (12-16); IMMATURE GRANULOCYTES 0.9 % (0-5); LYMPHOCYTES 9.5 % (15-50); MCH 30.3 pg (26.0-34.0); MCHC 32.4 g/dL (31.0-37.0); MCV 93.6 fL (80.0-100.0); MEAN PLATELET VOLUME 9.9 fL (7.4-10.4); MONOCYTES 9.1 % (2-11); NEUTROPHILS 80.2 % (40-80); PLATELET COUNT 112 10x3/uL (130-400); RBC 3.27 10x6/uL (4.00-5.40); RDW 12.9 % (11.5-14.5)
[2017-12-23 06:20] LABS: ANION GAP 11.9 mmol/L (8-16); CALCIUM 8.7 mg/dL (8.5-10.1); CARBON DIOXIDE 29.5 mmol/L (21.0-32.0); POTASSIUM - SERUM 4.4 mmol/L (3.5-5.1)
[2017-12-23 06:21] LABS: CREATININE - SERUM 0.9 mg/dL (0.6-1.3)
[2017-12-23 08:40] VITALS: BP 100/54
[2017-12-23 12:36] VITALS: BP 82/50
[2017-12-23 20:27] VITALS: BP 108/52
[2017-12-24 00:22] VITALS: BP 117/66
[2017-12-24 04:08] LABS: BASOPHILS 0.1 % (0-2); EOSINOPHILS 0.2 % (0-7); HEMATOCRIT 32.2 % (36.0-48.0); HEMOGLOBIN 10.3 g/dL (12-16); IMMATURE GRANULOCYTES 0.4 % (0-5); LYMPHOCYTES 9.6 % (15-50); MCV 93.9 fL (80.0-100.0); MEAN PLATELET VOLUME 9.6 fL (7.4-10.4); MONOCYTES 7.9 % (2-11); NEUTROPHILS 81.8 % (40-80); PLATELET COUNT 131 10x3/uL (130-400); RBC 3.43 10x6/uL (4.00-5.40); RDW 12.9 % (11.5-14.5); WBC 9.2 10x3/uL (4.8-10.8)
[2017-12-24 04:18] LABS: ANION GAP 9.9 mmol/L (8-16); CALCIUM 9.1 mg/dL (8.5-10.1); CARBON DIOXIDE 33.4 mmol/L (21.0-32.0); CREATININE - SERUM 0.9 mg/dL (0.6-1.3); POTASSIUM - SERUM 4.3 mmol/L (3.5-5.1)
[2017-12-24 08:36] VITALS: BP 144/87
[2017-12-24 12:04] VITALS: BP 88/48
[2017-12-24 21:12] VITALS: BP 79/49
[2017-12-25 04:49] LABS: BASOPHILS 0 % (0-2); EOSINOPHILS 0.1 % (0-7); HEMATOCRIT 30.8 % (36.0-48.0); HEMOGLOBIN 9.8 g/dL (12-16); IMMATURE GRANULOCYTES 0.4 % (0-5); LYMPHOCYTES 10.4 % (15-50); MCH 30.1 pg (26.0-34.0); MCHC 31.8 g/dL (31.0-37.0); MCV 94.5 fL (80.0-100.0); MEAN PLATELET VOLUME 10.2 fL (7.4-10.4); MONOCYTES 6.5 % (2-11); NEUTROPHILS 82.6 % (40-80); PLATELET COUNT 120 10x3/uL (130-400); RBC 3.26 10x6/uL (4.00-5.40); WBC 7.9 10x3/uL (4.8-10.8)
[2017-12-25 05:01] LABS: CALCIUM 9.1 mg/dL (8.5-10.1); CARBON DIOXIDE 32.1 mmol/L (21.0-32.0); CREATININE - SERUM 0.9 mg/dL (0.6-1.3); POTASSIUM - SERUM 4.1 mmol/L (3.5-5.1)
[2017-12-25 08:38] VITALS: BP 172/92
[2017-12-25 22:09] VITALS: BP 124/60
[2017-12-26 00:17] VITALS: BP 134/64
[2017-12-26 04:31] VITALS: BP 134/64
[2017-12-26 07:15] LABS: ANION GAP 8.9 mmol/L (8-16); CALCIUM 8.8 mg/dL (8.5-10.1); CARBON DIOXIDE 35.1 mmol/L (21.0-32.0)
[2017-12-26 07:16] LABS: CREATININE - SERUM 1.2 mg/dL (0.6-1.3)
[2017-12-26 08:55] VITALS: BP 173/72; BP 98/62
[2017-12-26 09:24] LABS: BASOPHILS 0.5 % (0-2); EOSINOPHILS 3.1 % (0-7); HEMATOCRIT 29.4 % (36.0-48.0); HEMOGLOBIN 9.3 g/dL (12-16); IMMATURE GRANULOCYTES 0.5 % (0-5); LYMPHOCYTES 19.6 % (15-50); MCHC 31.6 g/dL (31.0-37.0); MCV 94.8 fL (80.0-100.0); MONOCYTES 1.5 % (2-11); NEUTROPHILS 74.8 % (40-80); PLATELET COUNT 103 10x3/uL (130-400); RDW 12.9 % (11.5-14.5)
[2017-12-26 09:27] LABS: WBC 5.9 10x3/uL (4.8-10.8)
[2017-12-26 12:07] VITALS: BP 151/59
[2017-12-26 16:32] VITALS: BP 147/68
[2017-12-26 21:33] VITALS: BP 138/67
[2017-12-27 00:25] VITALS: BP 148/68
[2017-12-27 04:21] VITALS: BP 124/64
[2017-12-27 08:37] VITALS: BP 147/68
[2017-12-27 12:01] VITALS: BP 120/60
[2017-12-27] MEDS ORDERED: CALMOSEPTINE OI71 GM TOPICAL (12:04)
[2017-12-27] MEDS ORDERED: Duragesic TRANSDERM (12:32)
[2017-12-27] MEDS ORDERED: DILAUDID2 MG PO (12:32)
[2017-12-27 13:11] LABS: BASOPHILS 0.2 % (0-2); EOSINOPHILS 3.3 % (0-7); HEMATOCRIT 27.1 % (36.0-48.0); HEMOGLOBIN 8.6 g/dL (12-16); LYMPHOCYTES 22.1 % (15-50); MCH 29.7 pg (26.0-34.0); MCHC 31.7 g/dL (31.0-37.0); MCV 93.4 fL (80.0-100.0); MEAN PLATELET VOLUME 9.1 fL (7.4-10.4); MONOCYTES 0.4 % (2-11); PLATELET COUNT 95 10x3/uL (130-400); RDW 12.5 % (11.5-14.5); WBC 5.4 10x3/uL (4.8-10.8)
[2017-12-27 13:31] LABS: ANION GAP 10.3 mmol/L (8-16); CALCIUM 8.7 mg/dL (8.5-10.1); CARBON DIOXIDE 30.9 mmol/L (21.0-32.0); POTASSIUM - SERUM 4.2 mmol/L (3.5-5.1)
== END 2017-12-27 14:07 | disposition home or self-care (01) | DRG 181 ==
LOC: D.ER 23:19 → D.EDHOLD 12-19 00:39 → D.MS 12-19 00:39
PROVIDERS: Family Medicine; Internal Medicine Nephrology; Internal Medicine Pulmonary Disease; Radiology Diagnostic Radiology
PROC: 0WBC3ZX Excision of Mediastinum, Percutaneous Approach, Diagnostic (ICD-10-PCS; principal; 2017-12-21 11:00)
PROC: 0JH63WZ Insertion of Totally Implantable Vascular Access Device into Chest Subcutaneous Tissue and Fascia, Percutaneous Approach (ICD-10-PCS; 2017-12-22)
PROC: B5181ZA Fluoroscopy of Superior Vena Cava using Low Osmolar Contrast, Guidance (ICD-10-PCS; 2017-12-22)
PROC: 3E04305 Introduction of Other Antineoplastic into Central Vein, Percutaneous Approach (ICD-10-PCS; 2017-12-23)
DX: C34.91 Malignant neoplasm of unspecified part of right bronchus or lung (principal); N17.9 Acute kidney failure, unspecified; I10 Essential (primary) hypertension; F41.9 Anxiety disorder, unspecified; I25.10 Atherosclerotic heart disease of native coronary artery without angina pectoris; I73.9 Peripheral vascular disease, unspecified; K21.9 Gastro-esophageal reflux disease without esophagitis; Z87.891 Personal history of nicotine dependence; R63.4 Abnormal weight loss; Z68.31 Body mass index [BMI] 31.0-31.9, adult; R19.7 Diarrhea, unspecified; R51 Headache; J30.9 Allergic rhinitis, unspecified; R13.12 Dysphagia, oropharyngeal phase

== ENCOUNTER → 2018-02-23 09:23 | Outpatient (CLI) | payer MEDICAID ==
[2017-12-20 18:07] VITALS: BMI 31.6
[~2018-02-23 09:23] MED LIST changes: +BAYER CHEWABLE81 MG PO; +BUTALB-APAP-CA1 EACH PO; +CALMOSEPTINE OI71 GM TOPICAL; +DILAUDID2 MG PO; +Duragesic TRANSDERM; +ESTROPIPATE1.5 MG PO; +MEDROL DOSE PACK4 MG PO; +NEURONTIN 300300 MG PO; +NIFEDIPINE ER60 MG PO; +PROCARDIA10 MG PO; +ULTRAM50 MG PO
== END | disposition home or self-care (01) ==
LOC: D.CT 09:23
DX: C34.11 Malignant neoplasm of upper lobe, right bronchus or lung (principal); D64.81 Anemia due to antineoplastic chemotherapy